=== PATIENT | male | born 1950 | race Caucasian/White ===

== ENCOUNTER 2020-02-20 12:00 | Inpatient (IN) | payer OTHER, MEDICARE ==
[2020-02-22] MEDS ORDERED: Fentanyl 100 MCG/2 ML VIAL ONE ×2 (08:16→14:17)
[2020-02-22] MEDS ORDERED: EPINEPHrine 1 MG/ML AMP ONE (09:06)
[2020-02-22] MEDS ORDERED: Thrombin 5000 UNITS/5 ML VIAL ONE (09:06)
[2020-02-22] MEDS ORDERED: Bupivacaine PF 0.5% 30 ML VIAL ONE (09:06)
[2020-02-22] MEDS ORDERED: Bacitracin Zinc Ointment 30 gm TUBE ONE (09:06)
[2020-02-22] MEDS ORDERED: Midazolam HCl 2 mg/2 ml Vial ONE ×2 (09:42→12:17)
[2020-02-22] MEDS ORDERED: Dexmedetomidine 200 MCG/2 ML VIAL ONE (09:58)
[2020-02-22] MEDS ORDERED: Albumin 5% 500 ML ONE (11:52)
[2020-02-22] MEDS ORDERED: Rocuronium Bromide 50 MG/5 ML VIAL ONE ×2 (12:15→14:24)
[2020-02-22] MEDS ORDERED: PROPOFOL 20 ML ONE (12:15)
[2020-02-22] MEDS ORDERED: Phenylephrine 10 MG/ML VIAL ONE ×2 (12:38→14:46)
[2020-02-22] MEDS ORDERED: PHENYLEPHRINE-NS 100 MCG/ML 10 ML SYRINGE ONE ×2 (13:27→16:27)
[2020-02-22] MEDS ORDERED: Rocuronium Bromide 10 MG/ML (10ML VIAL) ONE (13:27)
[2020-02-22] MEDS ORDERED: Calcium Chloride 1 GM/10 ML Abboject SYRINGE ONE (13:27)
[2020-02-22] MEDS ORDERED: EPHEDRINE 25 MG/5 ML SYRINGE ONE (13:27)
[2020-02-22] MEDS ORDERED: PROPOFOL 200 MG/20 ML VIAL ONE (13:27)
[2020-02-22] MEDS ORDERED: Ketorolac Tromethamine 30 MG/ML VIAL ONE (13:27)
[2020-02-22] MEDS ORDERED: diphenhydrAMINE 50 MG/ML VIAL ONE (13:27)
[2020-02-22] MEDS ORDERED: Dexamethasone 20 MG/5 ML VIAL ONE (13:27)
[2020-02-22] MEDS ORDERED: Ondansetron PF 4 MG/2 ML Vial ONE ×2 (13:27→15:38)
[2020-02-22] MEDS ORDERED: Lidocaine 1% PF 5 ML VIAL ONE (13:27)
[2020-02-22] MEDS ORDERED: SUGAMMADEX SODIUM 500 MG/5 ML VIAL ONE (16:04)
[2020-02-22] MEDS ORDERED: Milk Of Magnesia 30 ML UDCUP PO PRN (16:06)
[2020-02-22] MEDS ORDERED: Mag-Al 1200 mg/1200 mg/30 ML UDCUP PO PRN (16:06)
[2020-02-22] MEDS ORDERED: traMADol HCl 50 MG TAB PO PRN (16:06)
[2020-02-22] MEDS ORDERED: diphenhydrAMINE 25 MG CAP PO PRN (16:06)
[2020-02-22] MEDS ORDERED: Promethazine 25 MG TAB PO PRN (16:06)
[2020-02-22] MEDS ORDERED: Acetaminophen/Codeine 30-300mg Tablet PO PRN (16:06)
[2020-02-22] MEDS ORDERED: HYDROmorphone 2 MG/ML VIAL ONE (16:14)
[2020-02-22] MEDS ORDERED: Phenylephrine 10 MG in Sodium Chloride 0.9% 250 ML 250 ML IVPB SCH (16:45)
[2020-02-22] MEDS ORDERED: Ondansetron HCl/PF 4 MG/2 ML Vial IVP PRN (16:57)
[2020-02-22] MEDS ORDERED: Morphine Sulfate 2 MG/ML SYRINGE SLOW IVP PRN (16:57)
[2020-02-22] MEDS ORDERED: HYDROmorphone 2 MG/ML VIAL SLOW IVP PRN (16:57)
[2020-02-22] MEDS ORDERED: Meperidine HCl/PF 25 MG/ML VIAL SLOW IVP PRN (16:57)
[2020-02-22 17:10] LABS: #Lymphocytes 1.3 thou/uL (1.20-3.40); #Monocytes 0.6 thou/uL (0.11-0.59); #Neutrophils 14.8 thou/uL (1.40-6.50); %Basophils 0.1 % (0.0-1.0); %Eosinophils 0.2 % (0.0-10.0); %Monocytes 3.7 % (0.0-10.0); Hemoglobin 13.4 g/dL (14.0-18.0); Mean Corpuscular HGB CONC 32.5 g/dL (32.0-36.0); Mean Corpuscular Hemoglobin 31.6 pg (27.0-31.0); Mean Corpuscular Volume 97.2 fL (78.0-98.0); Mean Platelet Volume 8.1 fL (7.4-10.4); Platelet Count 182 thou/uL (130-400); RBC Distribution Width 12.9 % (11.5-14.5); Red Blood Cell (RBC) Count 4.23 mill/uL (4.70-6.10); White Blood Cell (WBC) Count 16.8 thou/uL (4.8-10.8)
[2020-02-22 17:36] LABS: Anion Gap 16 mmol/L (10-20); BUN (Urea Nitrogen) 25 mg/dL (8.4-25.7); Calc. Creatinine Clearance 65 mL/min (70-130); Calcium 8.8 mg/dL (7.8-10.44); Carbon Dioxide 19 mmol/L (23-31); Chloride 106 mmol/L (98-107); Estimated GFR-MDRD 40; Glucose 134 mg/dL (80-115); Potassium 3.9 mmol/L (3.5-5.1); Sodium 137 mmol/L (136-145)
[2020-02-22 17:39] LABS: Troponin I Less than 0.010 ng/mL (< 0.028)
--- NOTE | 2020-02-22 18:29 | OP ---
DATE OF PROCEDURE: 02/22/2020 DISEASE CASE MANAGER: Zachary Moralez PA-C PREOPERATIVE INDICATION: Make diagnosis, prevent neurological deterioration. PREOPERATIVE DIAGNOSIS: Right C2 lesion, intradural and extradural. POSTOPERATIVE DIAGNOSIS: Right C2 lesion, intradural and extradural. OPERATIVE PROCEDURE: Removal of the arch of C1, laminectomy of C2, extradural removal of right C2 nerve root lesion, microsurgical intradural exploration, biopsies of intradural portion of tumor, dural closure. PREOPERATIVE MEDICATIONS: Ancef 2 g IV. DRAIN NUMBER: Zero. DRAIN TYPE: None. DESCRIPTION OF PROCEDURE: The patient was brought to the operating room. General endotracheal anesthesia was induced. The patient was positioned prone on the operating table with his head immobilized in a Humphreys pin head greenskeeper. The back and neck were sterilely prepped and draped. We opened a midline incision with a 10 blade knife and we controlled bleeding with bipolar and monopolar cautery. We used monopolar cautery to dissect through subcutaneous tissues to the ligamentum nuchae. We incised the ligament in the midline and we reflected the suboccipital musculature and paraspinal muscles off the subocciput, the arch of C1, and the lamina of C2. Self-retaining retractors were placed. Using the Adson rongeur, removed the spinous process of C2 and thinned the lamina. Using Kerrisons, we fashioned a laminectomy at C2, more so on the right side than the left. We left about a third of the lamina on the left side. In a similar fashion, we removed all the right side of the posterior arch of C1 and we left a third of the arch of C1 on the left. We carried our laminectomy towards the lateral aspect of the dura on the right and we widened the C2 foramina. We carefully dissected the epidural venous plexus around the C2 nerve root, which was markedly enlarged. This dissection was circumferential around the root. We found the abnormal tissue was not adherent to the dura itself, but rather to the root in the foramen. We dissected between the tumor and the dura. We dissected between the tumor and the arch of C1 and the pars of C2. We identified connections with the C2 nerve root proximally and distally. We irrigated copiously with bacitracin irrigation as we bipolared first proximally through the nerve root and then distally and then removed the nerve root and the lesion and sent it to pathology. Hemostasis in the foramina was a bit arduous, but achieved quite nicely in the end. We irrigated with bacitracin irrigation. We applied a Valsalva and there was no CSF egress through the nerve root sleeve. Because of the imaging suggestive of an intradural component, we then turned our attention to opening the dura. The operative microscope was brought on the field. Under microscopic magnification and using microsurgical techniques, we carefully opened the dura in the midline. We tacked the dura to the paraspinal muscles with 4-0 silk sutures. We opened the arachnoid and used hemoclips to attach the arachnoid to the dura. We visualized the right hemicord and we followed nerve roots towards the C2 foramen. Unfortunately, multiple rootlets were adherent to abnormal looking tissue on the right side of the internal portion of the dura at C2. This tumorlike tissue had small calcifications and a myxomatous appearance grossly. Five to six different nerve roots were adherent to it and passed through it. Small samples were taken of the intradural abnormality, but in order to scrape it free of all the nerve roots, we would have had to sacrifice some and endanger other roots on that side, some of which controlled the diaphragm. I was unwilling to do so. I took multiple safe samples, irrigated with bacitracin irrigation and reclosed the dura in the midline. We reinforced our dural closure with DuraSeal tissue sealant after we had copiously irrigated the wound. We closed the fascia in a watertight fashion. We treated the subcutaneous area with vancomycin powder. We closed the subcutaneous tissue and skin in anatomical layers. We applied sterile dressings. It is clean case, no contamination. Job ID: [id number] [facility]
[2020-02-22] MEDS: CEFAZOLIN 2 GM in Premix Bag 1 BAG IVPB SCH ×2 (18:40→23:58)
[2020-02-22 19:08] VITALS: BMI 34.9
[2020-02-22] MEDS: Sodium Chloride 0.9% 1,000 ML IV SCH (19:54)
[2020-02-22] MEDS: Ondansetron PF 4 MG/2 ML Vial IVP PRN (19:54)
[2020-02-22] MEDS: Morphine 2 MG/ML SYRINGE SLOW IVP PRN ×3 (19:54→23:58)
[2020-02-23] MEDS: Ondansetron PF 4 MG/2 ML Vial IVP PRN (01:38)
[2020-02-23] MEDS: Morphine 2 MG/ML SYRINGE SLOW IVP PRN ×3 (01:38→19:19)
[2020-02-23] MEDS: Acetaminophen 325 MG TAB PO PRN ×2 (02:12→10:52)
[2020-02-23] MEDS: HYDROcodone/Acetaminophen 7.5/325 mg Tablet PO PRN ×3 (02:12→18:26)
[2020-02-23] MEDS ORDERED: Tamsulosin HCl 0.4 MG CAP PO SCH ×3 (06:00→21:00)
[2020-02-23] MEDS: Sodium Chloride 0.9% 1,000 ML IV SCH (06:06)
--- NOTE | 2020-02-23 07:03 | PRG ---
DATE OF SERVICE: 02/23/2020 I saw Mr. Cliff Schuster in the CCU this morning. Postoperatively, in the PACU, he had low blood pressure alarming Anesthesia a bit. He was worked up for cardiac event and testing was negative. They recommended ICU observation overnight. A phenylephrine drip was loaded, but never utilized. No other events were reported from last night. The surgical site is painful for Mr. Schuster. Otherwise, he feels he is doing well. Along the electronically recorded vital signs, I do not see any fevers. Blood pressures, without support, have ranged between 119 and 151. Arms and legs are moving well. He just got out of bed and is sitting in a bedside chair. He does not appreciate any new numbness or weakness in his extremities during the move. Our plan for Mr. Schuster this morning is to start to mobilize. If his blood pressure remained stable, then he could be transferred from the ICU to regular surgical floor. He can begin to mobilize. When he is ambulatory, dressing himself, eating, using the bathroom, and his pain is under reasonable control with oral analgesics, he can be discharged home. We will await final pathology of the lesion. Unfortunately, small portion of abnormal cells were intradural mixed in with nerve roots that control the diaphragm and could not be removed entirely. The extradural component was removed in its entirety along with the right C2 nerve root. Job ID: [id number]
[2020-02-23] MEDS: tiZANidine HCl 4 MG TAB PO PRN ×3 (07:38→20:38)
[2020-02-23] MEDS: Amlodipine 5 mg/Benazepril 20 mg CAP PO SCH (08:35)
[2020-02-23] MEDS: Ascorbic Acid 500 mg Chewable Tablet PO SCH (08:36)
[2020-02-23] MEDS: Cyanocobalamin (Vitamin B-12) 1,000 MCG TAB PO SCH (08:38)
[2020-02-23] MEDS: Fenofibrate Nanocrystallized 145 MG TAB PO SCH (08:40)
[2020-02-23] MEDS: Hydrochlorothiazide 25 MG TAB PO SCH (08:40)
[2020-02-23] MEDS: Multivit, Therapeutic 1 TAB PO SCH (08:40)
[2020-02-23] MEDS ORDERED: Hydrochlorothiazide 25 MG TAB PO SCH (09:00)
[2020-02-23] MEDS ORDERED: Non-Formulary Item 1 EACH (Cholecalciferol (Vitamin D3) [Vitamin D3] 25 MCG) PO SCH (09:00)
[2020-02-23] MEDS ORDERED: Non-Formulary Item 1 EACH (Multivitamin [Multivitamins] 1 CAP) PO SCH (09:00)
[2020-02-23] MEDS ORDERED: Non-Formulary Item 1 EACH (Ascorbic Acid [Vitamin C] 1,000 MG) PO SCH (09:00)
[2020-02-23] MEDS ORDERED: FENOFIBRATE MICRONIZED PO SCH (09:00)
[2020-02-23] MEDS ORDERED: Non-Formulary Item 1 EACH (Amlodipine Besylate/Benazepril [Amlodipine Besylate/Benazepril PO SCH (09:00)
[2020-02-23] MEDS ORDERED: Non-Formulary Item 1 EACH (Cyanocobalamin (Vitamin B-12) [Vitamin B12] 2,500 MCG) PO SCH (09:00)
[2020-02-23] MEDS ORDERED: Non-Formulary Item 1 EACH (Omeprazole [Omeprazole] 20 MG) PO SCH (09:00)
[2020-02-23] MEDS ORDERED: Rosuvastatin 20 MG TAB PO SCH (21:00)
[2020-02-23] MEDS ORDERED: Non-Formulary Item 1 EACH (Rosuvastatin Calcium [Rosuvastatin Calcium] 1 TAB) PO SCH (21:00)
[2020-02-23] MEDS ORDERED: Atenolol 50 MG TAB PO SCH ×2 (21:00)
[2020-02-24] MEDS: Morphine 2 MG/ML SYRINGE SLOW IVP PRN ×2 (00:54→04:03)
[2020-02-24] MEDS: HYDROcodone/Acetaminophen 7.5/325 mg Tablet PO PRN ×2 (00:54→07:59)
[2020-02-24] MEDS: tiZANidine HCl 4 MG TAB PO PRN (04:03)
[2020-02-24] MEDS: Amlodipine 5 mg/Benazepril 20 mg CAP PO SCH (08:02)
[2020-02-24] MEDS: Cyanocobalamin (Vitamin B-12) 1,000 MCG TAB PO SCH (08:03)
[2020-02-24] MEDS: Hydrochlorothiazide 25 MG TAB PO SCH (08:03)
[2020-02-24] MEDS: Ascorbic Acid 500 mg Chewable Tablet PO SCH (08:03)
[2020-02-24] MEDS: Multivit, Therapeutic 1 TAB PO SCH (08:03)
[2020-02-24] MEDS: Fenofibrate Nanocrystallized 145 MG TAB PO SCH (08:04)
[2020-02-24] MEDS: Acetaminophen 325 MG TAB PO PRN (08:08)
--- NOTE | 2020-02-24 08:12 | PRG ---
DATE OF SERVICE: 02/24/2020 Mr. Schuster is two days out from removal of a C2 nerve root lesion. He also had some intradural abnormal tissue mixed among multiple cervical nerve roots that was biopsied. I think control has been better overnight. He got some rest after muscle relaxants and analgesia in the early hours of the morning. He is feeling better this morning. He is up and around. His arms and legs are moving well. He does not have too much pain this morning. I do not see any fevers recorded. Other vital signs are stable and his neurological examination is normal. Mr. Schuster is ready for discharge. We will follow up in 2 weeks time. As soon as I get the final pathology results next week, I will call him with those. Job ID: [id number]
[2020-02-24 09:03] VITALS: BP 120/65; TEMP 97.9
--- NOTE | 2020-02-24 11:12 | DIS ---
DATE OF ADMISSION: 02/22/2020 DATE OF DISCHARGE: 02/24/2020 HOSPITAL COURSE: Mr. Schuster is 2 days out from a hemilaminectomy with tumor resection of the C2 nerve root lesion. Following the surgery, he was transitioned to the ICU, then next day to Med/Surg floor where his pain has been well controlled with p.o. medication. He tolerated a regular diet and he was voiding appropriately. He is otherwise doing well and ambulating easily in the hallways and feels that he is ready to go home today. On exam today, he is awake, alert, in no acute distress. He has free active range of motion of all extremities. No focal motor weakness. No reflex asymmetry. His incision is clean, dry, and intact. We will plan to dismiss the patient home today. I have discussed home care precautions. CONDITION ON DISCHARGE: The patient had no emergencies. The patient was stable for discharge. MEDICATIONS: Home ongoing medications were reviewed. FOLLOWUP: Followup arrangements made by our dental office coordinator in clinic and call to the patient. ACTIVITIES: Restrictions were reviewed in person. Wound care and showers are acceptable. The patient should pat the incision dry, but not submerge it under the surface of the body of water for 2 months. Job ID: [id number]
== END 2020-02-24 10:00 | disposition home or self-care (01) | DRG 30 ==
LOC: SURG A 02-22 07:22 → CCU 02-22 18:18 → SJJU 02-23 10:09
PROVIDERS: ADMIT Neurological Surgery; ATTEND Neurological Surgery
PROC: 00BW0ZZ Excision of Cervical Spinal Cord, Open Approach (ICD-10-PCS; principal; 2020-02-22)
DX: D33.4 Benign neoplasm of spinal cord (principal); G54.2 Cervical root disorders, not elsewhere classified; N40.0 Benign prostatic hyperplasia without lower urinary tract symptoms; E78.00 Pure hypercholesterolemia, unspecified; I10 Essential (primary) hypertension; E78.5 Hyperlipidemia, unspecified; C44.90 Unspecified malignant neoplasm of skin, unspecified; E66.9 Obesity, unspecified; Z86.73 Personal history of transient ischemic attack (TIA), and cerebral infarction without residual deficits; Z87.891 Personal history of nicotine dependence; Z68.35 Body mass index [BMI] 35.0-35.9, adult
CPT/HCPCS: 36416; 80048; 84484; 85025; 85027; 85610; 85730; 87635; 88307; 93005; 93010; J0171; J0690; J1100; J1170; J1200; J1885; J2001; J2250; J2270; J2370; J2405; J2704; J3010; J3370; P9045; Q0169; S0020; U0003